=== PATIENT | female | born 1945 | race Caucasian/White ===

== ENCOUNTER → 2024-01-21 09:11 | Outpatient (REF) | payer MEDICARE, SELFPAY | LOC: MRI 3T 09:11 | PROVIDERS: ATTENDING PHYSICIAN Family Medicine Sports Medicine | DX: M19.071 Primary osteoarthritis, right ankle and foot (principal) | CPT/HCPCS: 73721 ==

== ENCOUNTER → 2025-01-16 15:41 | Outpatient (REF) | payer MEDICARE, SELFPAY | LOC: HWRCS 15:41 | PROVIDERS: ATTENDING PHYSICIAN Family Medicine Sports Medicine | DX: R06.00 Dyspnea, unspecified (principal) | CPT/HCPCS: 93306 ==